=== PATIENT | female | born 1990 | race Caucasian/White ===

== ENCOUNTER 2019-04-12 19:37 | Emergency (ER) | payer OTHER ==
[~2019-04-12] VITALS: Ht 157.5 cm; Wt 85.3 kg
[~2019-04-12 19:37] MED LIST: ESCI10 PO; FURO20 PO; POTASSIUM99 M1 PO; Percocet 5-3251 EACH PO
[2019-04-12] MEDS ORDERED: Zantac150 MG PO (22:10)
[2019-04-12] MEDS ORDERED: METH10 (22:11)
== END 2019-04-12 22:21 | disposition home or self-care (01) ==
LOC: ER 19:37
DX: M79.89 Other specified soft tissue disorders (principal); F17.200 Nicotine dependence, unspecified, uncomplicated; Z88.8 Allergy status to other drugs, medicaments and biological substances; Z79.899 Other long term (current) drug therapy
CPT/HCPCS: 93971; 99283-25

== ENCOUNTER 2020-05-22 10:29 | Emergency (ER) | payer OTHER ==
[~2020-05-22] VITALS: Ht 154.9 cm; Wt 74.8 kg
[~2020-05-22 10:29] MED LIST changes: +METH10; +Zantac150 MG PO
[2020-05-22] MEDS ORDERED: KETO10 PO (14:08)
[2020-05-22] MEDS ORDERED: TIZA4 PO (14:09)
[2020-05-22] MEDS ORDERED: METPRE4DP PO (14:09)
== END 2020-05-22 14:22 | disposition home or self-care (01) ==
LOC: ER 10:29
DX: M54.16 Radiculopathy, lumbar region (principal); M54.41 Lumbago with sciatica, right side; F17.200 Nicotine dependence, unspecified, uncomplicated; Z88.8 Allergy status to other drugs, medicaments and biological substances; Z79.899 Other long term (current) drug therapy; Z79.891 Long term (current) use of opiate analgesic
CPT/HCPCS: 96372; 99282-25; A9270-GY; J1885

== ENCOUNTER 2020-06-30 09:07 | Day surgery (SDC) | payer OTHER ==
[~2020-06-30] VITALS: Ht 154.9 cm; Wt 74.7 kg
[~2020-06-30 09:07] MED LIST changes: +Colace100 MG PO; +ESCI20 PO; +KETO10 PO; +METPRE4DP PO; +Neurontin 100100 MG PO; +OMEP20ER PO; +TIZA4 PO
--- NOTE | 2020-06-30 10:46 | NUR ---
06/30/20 1046 FELECIA POE PT USED CALL LIGHT AND EXPRESSED FRUSTRATIONS THAT SHE HAD BEEN "AT THE FACILITY SINCE 914 AND NOT SEEN ANYONE SINCE BEING ADMITTED" I EXPLAINED TO PATIENT THAT WE HAVE PATIENT COME AND HOUR AND FIFTEEN MINUTES EARLY FOR IV PLACEMENT, MEDICAL HISTORY AND TO SEE PROVIDER BEFORE PROCEDURE. I EXPLAINED THAT LIKELY THE REASON SHE HAD NOT SEEN HER PROVIDER WAS BECAUSE HE WAS TAKING CARE OF THE PATIENT PRIOR TO HER. PT ALSO REPORTED NAUSEA AND IS FRUSTRATED THAT SHE HAS TO WAIT WHEN NOT FEELING WELL. I APOLOGIZED AND OFFERED TO CONSULT DR. GUZMAN. DR. GUZMAN CONSULTED WHO ORDERED ZOFRAN 8 MG IV PUSH. I ADMINISTERED THIS AND CONNECTED PT TO [facility]. i ASKED THAT SHE PLEASE CALL IF SHE HAS FURTHER CONCERNS. NURSE KAREN IS IN PROCEDURE AND UNABLE TO SEE PT AT THIS TIME/
--- NOTE | 2020-06-30 16:39 | NUR ---
06/30/20 1639 JENNIFER POLK PATIENT WAS MOVING ABOUT DURING START OF DR. GUZMAN'S PROCEDURE. PT GIVEN 2MG VERSED AND DURING PROCEDURE PT NEEDED MORE SEDATION, ADMINISTERED OUT OF PROTOCOL PER DR'S ORDERS.
== END 2020-06-30 12:30 | disposition home or self-care (01) ==
LOC: ORSCSDS 09:07
PROVIDERS: Internal Medicine Gastroenterology
PROC: 0DB98ZX Excision of Duodenum, Via Natural or Artificial Opening Endoscopic, Diagnostic (ICD-10-PCS; principal; 2020-06-30 10:30)
PROC: 0DB58ZX Excision of Esophagus, Via Natural or Artificial Opening Endoscopic, Diagnostic (ICD-10-PCS; principal; 2020-06-30 10:30)
PROC: 0DB78ZX Excision of Stomach, Pylorus, Via Natural or Artificial Opening Endoscopic, Diagnostic (ICD-10-PCS; principal; 2020-06-30 10:30)
DX: R10.13 Epigastric pain (principal); R11.2 Nausea with vomiting, unspecified; K20.90 Esophagitis, unspecified without bleeding; K44.9 Diaphragmatic hernia without obstruction or gangrene; K21.9 Gastro-esophageal reflux disease without esophagitis; F17.210 Nicotine dependence, cigarettes, uncomplicated
CPT/HCPCS: 88305; 88342; J2250; J2405; J2704; J7120

== ENCOUNTER 2020-09-17 18:21 | Emergency (ER) | payer OTHER ==
[~2020-09-17] VITALS: Ht 154.9 cm; Wt 68.0 kg
[2020-09-17 18:47] LABS: BASOPHILS ABSOLUTE AUTO 0.03 K/mm3 (0.00-0.23); BASOPHILS PERCENT AUTO 0 % (0-2); EOSINOPHILS ABSOLUTE AUTO 0.08 K/mm3 (0.00-0.68); EOSINOPHILS PERCENT AUTO 1 % (0-6); Hematocrit 35.9 % (33.0-51.0); IMMATURE GRAN ABSOLUTE AUTO 0.01 K/mm3 (0.00-0.10); IMMATURE GRAN PERCENT AUTO 0 % (0-1); LYMPHOCYTES ABSOLUTE AUTO 3.64 K/mm3 (0.84-5.20); LYMPHOCYTES PERCENT AUTO 34 % (21-46); MONOCYTES ABSOLUTE AUTO 0.47 K/mm3 (0.16-1.47); MONOCYTES PERCENT AUTO 4 % (4-13); Mean Corpuscular HGB 28.6 pg (26.0-34.0); Mean Corpuscular HGB Conc 33.4 g/dL (31.5-36.5); Mean Corpuscular Volume 86 fL (80-100); Mean Platelet Volume 9.7 fL (9.1-12.4); NEUTROPHILS ABSOLUTE AUTO 6.45 K/mm3 (1.96-9.15); NEUTROPHILS PERCENT AUTO 60 % (41-73); Platelet Count 349 K/mm3 (150-400); RDW Coefficient Variation 13.6 % (11.7-14.2); RDW Standard Deviation 42.6 fL (35.1-46.3); White Blood Cell Count 10.68 K/mm3 (4.00-11.30)
[2020-09-17 18:53] LABS: Source, Urine Clean Catch
[2020-09-17 19:00] LABS: Appearance, Urine Clear (Clear); Bilirubin, Urine Neg (Neg); Blood, Urine 1+ (Neg); Color, Urine Yellow (P-Yellow); Glucose Qualitative, Urine Neg (Neg); Ketones, Urine Neg (Neg); Leukocyte Esterase, Urine 1+ (Neg); Nitrite, Urine Neg (Neg); Protein, Urine Neg (Neg); Specific Gravity, Urine 1.015 (1.003-1.022); Urobilinogen, Urine 1+ (Normal); pH, Urine 6.5 (5.0-8.0)
[2020-09-17 19:09] LABS: Bacteria Mod /hpf; Red Blood Cells, Urine 0-2 /hpf (0-2); Squamous Epithelial Cells Few /hpf (Few)
[2020-09-17 19:30] LABS: Alanine Aminotransfer (ALT/SGP 21 U/L (12-78); Albumin, Blood 3.7 g/dL (3.4-5.0); Albumin/Globulin Ratio 1.2 (0.8-1.8); Alk Phos 90 U/L (50-136); Anion Gap 4 mmol/L (6-16); Aspartate Aminotrans (AST/SGOT 19 U/L (12-37); Bilirubin, Total 0.8 mg/dL (0.1-1.0); Blood Urea Nitrogen 7 mg/dL (8-24); Bun/Creatinine Ratio 10.5 (12.0-20.0); CO2, Blood 27 mmol/L (21-32); Calcium, Blood 8.8 mg/dL (8.5-10.1); Chloride, Blood 110 mmol/L (98-108); Creatinine, Blood 0.67 mg/dL (0.40-1.00); Glomerular Filtration Rate >60 (60-); Glucose, Blood 90 mg/dL (70-99); Potassium, Blood 3.9 mmol/L (3.5-5.5); Sodium, Blood 141 mmol/L (136-145); Total Protein, Blood 6.7 g/dL (6.4-8.2)
[2020-09-17] MEDS ORDERED: TOPI50 PO (20:10)
[2020-09-17] MEDS ORDERED: DULO60 PO (20:10)
[2020-09-17] MEDS ORDERED: METH40 PO (20:12)
[2020-09-17] MEDS ORDERED: Macrobid 100 M100 MG PO (21:03)
[2020-09-17] MEDS ORDERED: ONDA4ODT MM (21:03)
== END 2020-09-17 21:40 | disposition home or self-care (01) ==
LOC: ER 18:21
PROVIDERS: Emergency Medicine
DX: N39.0 Urinary tract infection, site not specified (principal); K25.9 Gastric ulcer, unspecified as acute or chronic, without hemorrhage or perforation; F17.200 Nicotine dependence, unspecified, uncomplicated; Z88.8 Allergy status to other drugs, medicaments and biological substances; Z79.899 Other long term (current) drug therapy
CPT/HCPCS: 36415; 80053; 81001; 83690; 85025; 87086; 96374; 99283-25; A9270; J2405

== ENCOUNTER 2021-01-11 12:10 | Emergency (ER) | payer OTHER ==
[~2021-01-11] VITALS: Ht 154.9 cm; Wt 70.3 kg
[~2021-01-11 12:10] MED LIST changes: +DULO60 PO; +METH40 PO; +Macrobid 100 M100 MG PO; +ONDA4ODT MM; +TOPI50 PO
[2021-01-11 12:50] LABS: Source, Urine Clean Catch
[2021-01-11] MEDS ORDERED: METO5A PO (12:50)
[2021-01-11] MEDS ORDERED: BRINTELLIX10 MG PO (12:51)
[2021-01-11 13:00] LABS: Appearance, Urine Cloudy (Clear); Bilirubin, Urine Neg (Neg); Blood, Urine Neg (Neg); Color, Urine Yellow (P-Yellow); Glucose Qualitative, Urine Neg (Neg); Ketones, Urine Neg (Neg); Leukocyte Esterase, Urine Neg (Neg); Nitrite, Urine Neg (Neg); Protein, Urine Neg (Neg); Specific Gravity, Urine 1.015 (1.003-1.022); Urobilinogen, Urine NORM (Normal)
[2021-01-11 13:01] LABS: BASOPHILS ABSOLUTE AUTO 0.07 K/mm3 (0.00-0.23); BASOPHILS PERCENT AUTO 0 % (0-2); EOSINOPHILS ABSOLUTE AUTO 0.12 K/mm3 (0.00-0.68); EOSINOPHILS PERCENT AUTO 1 % (0-6); Hematocrit 34.4 % (33.0-51.0); Hemoglobin 11.5 g/dL (11.5-16.0); IMMATURE GRAN ABSOLUTE AUTO 0.09 K/mm3 (0.00-0.10); IMMATURE GRAN PERCENT AUTO 0 % (0-1); LYMPHOCYTES ABSOLUTE AUTO 2.86 K/mm3 (0.84-5.20); LYMPHOCYTES PERCENT AUTO 13 % (21-46); MONOCYTES PERCENT AUTO 4 % (4-13); Mean Corpuscular HGB 28.9 pg (26.0-34.0); Mean Corpuscular HGB Conc 33.4 g/dL (31.5-36.5); Mean Corpuscular Volume 86 fL (80-100); Mean Platelet Volume 9.4 fL (9.1-12.4); NEUTROPHILS ABSOLUTE AUTO 18.27 K/mm3 (1.96-9.15); NEUTROPHILS PERCENT AUTO 82 % (41-73); Platelet Count 359 K/mm3 (150-400); RDW Coefficient Variation 14.6 % (11.7-14.2); RDW Standard Deviation 46.2 fL (35.1-46.3); Red Blood Cell Count 3.98 M/mm3 (3.80-5.20); White Blood Cell Count 22.31 K/mm3 (4.00-11.30)
[2021-01-11 13:11] LABS: Red Blood Cells, Urine 0-2 /hpf (0-2); Squamous Epithelial Cells Rare /hpf (Few); White Blood Cells, Urine 0-2 /hpf (0-5)
[2021-01-11 13:13] LABS: Amorphous Heavy (0-Heavy); Bacteria Rare /hpf
[2021-01-11 13:19] LABS: Alanine Aminotransfer (ALT/SGP 16 U/L (12-78); Albumin, Blood 3.5 g/dL (3.4-5.0); Albumin/Globulin Ratio 1.1 (0.8-1.8); Alk Phos 77 U/L (50-136); Anion Gap 6 mmol/L (6-16); Aspartate Aminotrans (AST/SGOT 17 U/L (12-37); Bilirubin, Total 0.4 mg/dL (0.1-1.0); Blood Urea Nitrogen 8 mg/dL (8-24); Bun/Creatinine Ratio 9.8 (12.0-20.0); CO2, Blood 26 mmol/L (21-32); Calcium, Blood 8.8 mg/dL (8.5-10.1); Chloride, Blood 110 mmol/L (98-108); Creatinine, Blood 0.82 mg/dL (0.40-1.00); Globulin, Blood 3.3 g/dL (2.2-4.0); Glomerular Filtration Rate >60 (60-); Glucose, Blood 92 mg/dL (70-99); Potassium, Blood 4.2 mmol/L (3.5-5.5); Sodium, Blood 142 mmol/L (136-145); Total Protein, Blood 6.8 g/dL (6.4-8.2)
[2021-01-11] MEDS ORDERED: ONDA4ODT MM (15:44)
== END 2021-01-11 15:50 | disposition home or self-care (01) ==
LOC: ER 12:10
PROVIDERS: Physician Assistant
DX: K31.84 Gastroparesis (principal); E86.0 Dehydration; Z79.899 Other long term (current) drug therapy
CPT/HCPCS: 36415; 74177; 80053; 81001; 81025; 83690; 85025; 96361; 96374-59; 96375; 99284-25; J1885; J2405; J2765; J7030; Q9967

== ENCOUNTER 2021-05-05 17:50 | Emergency (ER) | payer OTHER ==
[~2021-05-05] VITALS: Ht 154.9 cm; Wt 68.0 kg
[~2021-05-05 17:50] MED LIST changes: +BRINTELLIX10 MG PO; +METO5A PO
[2021-05-05 18:42] LABS: BASOPHILS ABSOLUTE AUTO 0.04 K/mm3 (0.00-0.23); BASOPHILS PERCENT AUTO 0 % (0-2); EOSINOPHILS ABSOLUTE AUTO 0.05 K/mm3 (0.00-0.68); EOSINOPHILS PERCENT AUTO 0 % (0-6); Hematocrit 36.9 % (33.0-51.0); IMMATURE GRAN ABSOLUTE AUTO 0.04 K/mm3 (0.00-0.10); IMMATURE GRAN PERCENT AUTO 0 % (0-1); LYMPHOCYTES ABSOLUTE AUTO 3.54 K/mm3 (0.84-5.20); LYMPHOCYTES PERCENT AUTO 31 % (21-46); MONOCYTES ABSOLUTE AUTO 0.32 K/mm3 (0.16-1.47); MONOCYTES PERCENT AUTO 3 % (4-13); Mean Corpuscular HGB 26.5 pg (26.0-34.0); Mean Corpuscular HGB Conc 32.5 g/dL (31.5-36.5); Mean Corpuscular Volume 82 fL (80-100); Mean Platelet Volume 9.3 fL (9.1-12.4); NEUTROPHILS ABSOLUTE AUTO 7.58 K/mm3 (1.96-9.15); NEUTROPHILS PERCENT AUTO 66 % (41-73); Platelet Count 345 K/mm3 (150-400); RDW Coefficient Variation 14.9 % (11.7-14.2); RDW Standard Deviation 43.5 fL (35.1-46.3); Red Blood Cell Count 4.52 M/mm3 (3.80-5.20); White Blood Cell Count 11.57 K/mm3 (4.00-11.30)
[2021-05-05 18:55] LABS: Alanine Aminotransfer (ALT/SGP 22 U/L (12-78); Albumin, Blood 3.5 g/dL (3.4-5.0); Albumin/Globulin Ratio 1.1 (0.8-1.8); Alk Phos 76 U/L (50-136); Anion Gap 6 mmol/L (6-16); Aspartate Aminotrans (AST/SGOT 15 U/L (12-37); Bilirubin, Total 0.7 mg/dL (0.1-1.0); Blood Urea Nitrogen 6 mg/dL (8-24); Bun/Creatinine Ratio 8.4 (12.0-20.0); CO2, Blood 24 mmol/L (21-32); Chloride, Blood 109 mmol/L (98-108); Creatinine, Blood 0.72 mg/dL (0.40-1.00); Globulin, Blood 3.1 g/dL (2.2-4.0); Glomerular Filtration Rate >60 (60-); Glucose, Blood 98 mg/dL (70-99); Potassium, Blood 4.1 mmol/L (3.5-5.5); Sodium, Blood 139 mmol/L (136-145); Total Protein, Blood 6.6 g/dL (6.4-8.2)
[2021-05-05 19:43] LABS: Source, Urine Clean Catch
[2021-05-05 19:55] LABS: Appearance, Urine Hazy (Clear); Blood, Urine 1+ (Neg); Color, Urine Amber (P-Yellow); Glucose Qualitative, Urine Neg (Neg); Ketones, Urine 1+ (Neg); Leukocyte Esterase, Urine 1+ (Neg); Nitrite, Urine Neg (Neg); Protein, Urine 2+ (Neg); Urobilinogen, Urine 1+ (Normal)
[2021-05-05 20:12] LABS: Bilirubin, Urine 1+ (Neg)
[2021-05-05 20:17] LABS: Bacteria Many /hpf; Mucus Mod (0-Heavy); Squamous Epithelial Cells Many /hpf (Few)
== END 2021-05-05 22:20 | disposition home or self-care (01) ==
LOC: ER 17:50
PROVIDERS: Physician Assistant
DX: R10.30 Lower abdominal pain, unspecified (principal); Z88.8 Allergy status to other drugs, medicaments and biological substances; Z79.899 Other long term (current) drug therapy; F17.210 Nicotine dependence, cigarettes, uncomplicated
CPT/HCPCS: 36415; 74176; 80053; 81001; 81025; 83690; 85025; 87086; 99284-25; A9270; J1885; J2405; J3010; J7030